=== PATIENT | female | born 1985 | race Caucasian/White ===

== ENCOUNTER 2021-11-15 16:47 | Inpatient (IN) | payer OTHER ==
[2021-11-15 17:55] VITALS: RESP 18; BMI 34.0
[2021-11-15] MEDS ORDERED: ONDANSETRON *ODT* 4 MG TABLET SL PRN (19:11)
[2021-11-15] MEDS ORDERED: LOPERAMIDE HCL 2 MG CAPSULE PO PRN (19:11)
[2021-11-15] MEDS ORDERED: BISMUTH SUBSALICYLATE 524 MG/30 ML PO PRN (19:11)
[2021-11-15] MEDS ORDERED: IBUPROFEN 600 MG TABLET (FP) PO PRN (19:11)
[2021-11-15] MEDS ORDERED: MAG HYDROX/AL HYDROX/SIMETH 30 ML UNIT-DOSE CUP PO PRN (19:11)
[2021-11-15] MEDS ORDERED: ACETAMINOPHEN 325 MG TABLET (FP) PO PRN ×2 (19:11)
[2021-11-15] MEDS ORDERED: DICYCLOMINE HCL 10 MG CAPSULE PO PRN (19:11)
[2021-11-15] MEDS ORDERED: MAGNESIUM CITRATE 300 ML BOTTLE PO PRN (19:11)
[2021-11-15] MEDS ORDERED: NALOXONE HCL (KLOXXADO) 8 MG SPRAY NS PRN (19:11)
[2021-11-15] MEDS ORDERED: MAGNESIUM HYDROX 2400MG/30ML ORAL SUSPENSION 30 ML CUP PO PRN (19:11)
[2021-11-15] MEDS ORDERED: NICOTINE 10 MG CARTRIDGE (INHALER) IH PRN (19:11)
[2021-11-15] MEDS ORDERED: BENZOCAINE/MENTHOL (CHLORASEPTIC ) LOZENGE MM PRN (19:11)
[2021-11-15] MEDS ORDERED: NICOTINE POLACRILEX 2 MG GUM BUC PRN (19:11)
[2021-11-15] MEDS ORDERED: METHOCARBAMOL 500 MG TABLET PO PRN (19:11)
[2021-11-15] MEDS ORDERED: IBUPROFEN 400 MG TABLET (FP) PO PRN (19:11)
[2021-11-15] MEDS ORDERED: diazePAM 5 MG TABLET PO ONE (20:35)
[2021-11-15] MEDS ORDERED: PATIENT'S OWN MEDICATION (NON-FORMULARY) (Lamotrigine [Lamotrigine] 150 MG Tablet) PO SCH (22:00)
[2021-11-15] MEDS ORDERED: MELATONIN 5 MG TABLETS PO SCH (22:00)
[2021-11-15] MEDS ORDERED: THIAMINE HCL 100 MG TABLET (FP) PO SCH (22:00)
[2021-11-15] MEDS: hydrOXYzine PAMOATE 25 MG CAPSULE (FP) PO SCH (22:42)
[2021-11-15] MEDS: GABAPENTIN 300 MG CAPSULE PO SCH (22:42)
[2021-11-15] MEDS: diazePAM 5 MG TABLET PO SCH (22:45)
[2021-11-16] MEDS: diazePAM 5 MG TABLET PO PRN ×2 (02:38→13:59)
[2021-11-16] MEDS: diazePAM 5 MG TABLET PO SCH ×3 (06:09→18:08)
[2021-11-16] MEDS: hydrOXYzine PAMOATE 25 MG CAPSULE (FP) PO SCH ×4 (06:10→18:07)
[2021-11-16] MEDS: GABAPENTIN 300 MG CAPSULE PO SCH ×2 (06:10→13:58)
[2021-11-16 09:58] LABS: HEMATOCRIT 41.1 % (32.4-45.2); HEMOGLOBIN 13.6 GM/dL (10.7-15.3); MCH 32.9 pg (25.7-33.7); MEAN CELL VOLUME 99.6 fl (80-96); PLATELET COUNT 320 10^3/uL (134-434); RBC 4.12 M/mm3 (3.60-5.2); RDW 13.2 % (11.6-15.6)
[2021-11-16] MEDS ORDERED: PRENATAL VITAMINS W/ FOLIC ACID TABLET (FP) PO SCH (10:00)
[2021-11-16] MEDS ORDERED: LAMOTRIGINE 100 MG, LAMOTRIGINE 50 MG PO SCH (10:00)
[2021-11-16 10:14] LABS: CALCIUM 8.3 mg/dL (8.5-10.1)
[2021-11-16 10:15] LABS: BLOOD UREA NITROGEN 14.3 mg/dL (7-18)
[2021-11-16 10:18] LABS: CREATININE 0.7 mg/dL (0.55-1.3)
[2021-11-16 10:19] LABS: BILIRUBIN,TOTAL 0.2 mg/dL (0.2-1); TOT PROT 5.2 g/dl (6.4-8.2)
[2021-11-16] MEDS ORDERED: ESCITALOPRAM OXALATE 20 MG TABLET PO SCH (11:00)
[2021-11-16 12:30] VITALS: BP 143/95; PULSE 91; TEMP 98.3
[2021-11-16] MEDS ORDERED: AMITRIPTYLINE HCL 25 MG TABLET PO PRN (22:00)
[2021-11-16] MEDS ORDERED: AMITRIPTYLINE HCL 75 MG TABLET PO SCH (22:00)
[2021-11-17] MEDS ORDERED: diazePAM 5 MG TABLET PO SCH (06:00)
[2021-11-18] MEDS ORDERED: diazePAM 5 MG TABLET PO SCH (06:00)
[2021-11-19] MEDS ORDERED: diazePAM 5 MG TABLET PO ONE (06:00)
== END 2021-11-16 19:06 | disposition left against medical advice (07) | DRG 770 ==
LOC: YASAS 16:47 → Y3N 19:23
PROVIDERS: ADMIT Allergy & Immunology; ATTEND Surgery
PROC: HZ2ZZZZ Detoxification Services for Substance Abuse Treatment (ICD-10-PCS; principal; 2021-11-15)
DX: F10.230 Alcohol dependence with withdrawal, uncomplicated (principal); F13.20 Sedative, hypnotic or anxiolytic dependence, uncomplicated; F14.20 Cocaine dependence, uncomplicated; F12.20 Cannabis dependence, uncomplicated; F17.210 Nicotine dependence, cigarettes, uncomplicated; F41.1 Generalized anxiety disorder; F32.A Depression, unspecified; F43.10 Post-traumatic stress disorder, unspecified; E03.9 Hypothyroidism, unspecified; G62.9 Polyneuropathy, unspecified; J45.909 Unspecified asthma, uncomplicated; R56.1 Post traumatic seizures; Z62.810 Personal history of physical and sexual abuse in childhood; Z91.410 Personal history of adult physical and sexual abuse
CPT/HCPCS: 36415; 80053; 85027; 86780; C9803-CS; U0003; U0005